=== PATIENT | male | born 1985 | race African-American/Black ===

== ENCOUNTER 2020-02-02 01:26 | Emergency (ER) | payer BC ==
[~2020-02-02] VITALS: Ht 180.3 cm; Wt 81.7 kg
[2020-02-02] MEDS ORDERED: NOHOMEMEDICATIONS (01:33)
[2020-02-02] MEDS ORDERED: MOBIC15 MG PO (02:23)
[2020-02-02 02:29] VITALS: BP 128/73
== END 2020-02-02 02:34 | disposition home or self-care (01) ==
LOC: ER 01:26
DX: K40.90 Unilateral inguinal hernia, without obstruction or gangrene, not specified as recurrent (principal); F17.210 Nicotine dependence, cigarettes, uncomplicated